=== PATIENT | male | born 1955 | race Caucasian/White ===

== ENCOUNTER 2022-11-16 10:50 | Emergency (ER) | payer OTHER ==
[2022-11-16 11:30] VITALS: BP 146/97; PULSE 93; RESP 18; TEMP 98.1; BMI 33.6
== END 2022-11-16 11:40 | disposition home or self-care (01) ==
LOC: FER 10:50
DX: R07.81 Pleurodynia (principal); S29.011A Strain of muscle and tendon of front wall of thorax, initial encounter; M79.602 Pain in left arm; S80.212A Abrasion, left knee, initial encounter; S40.212A Abrasion of left shoulder, initial encounter; W10.1XXA Fall (on)(from) sidewalk curb, initial encounter; Y93.01 Activity, walking, marching and hiking; Y92.480 Sidewalk as the place of occurrence of the external cause
CPT/HCPCS: 99283-25

== ENCOUNTER 2022-11-25 06:35 | Emergency (ER) | payer OTHER ==
[2022-11-25 06:52] VITALS: TEMP 97.8; BMI 32.5
[2022-11-25 09:13] LABS: HEMATOCRIT 45.3 % (35.4-49); MCH 29.6 pg (25.7-33.7); MCHC 33.2 g/dl (32.0-35.9); MEAN CELL VOLUME 89.2 fl (80-96); MEAN PLT VOLUME 8.8 fl (7.5-11.1); PLATELET COUNT 166.7 10^3/uL (134-434); RBC 5.08 10^6/uL (4.00-5.60); RDW 15.4 % (11.9-15.9); WHITE BLOOD COUNT 8.6 10^3/uL (4.0-10.8)
[2022-11-25 09:22] LABS: ALBUMIN 3.3 g/dl (3.4-5.0); BILIRUBIN,TOTAL 0.9 mg/dl (0.2-1); CALCIUM 9.6 mg/dl (8.5-10); CREATININE 1.6 mg/dl (0.55-1.3); POTASSIUM 3.8 mmol/L (3.5-5.1); TOT PROT 6.5 g/dl (6.4-8.2)
[2022-11-25 10:48] VITALS: BP 120/78; PULSE 76; RESP 18
== END 2022-11-25 11:48 | disposition home or self-care (01) ==
LOC: FER 06:35
DX: S40.912A Unspecified superficial injury of left shoulder, initial encounter (principal); M25.532 Pain in left wrist; R07.81 Pleurodynia; R10.12 Left upper quadrant pain; R10.32 Left lower quadrant pain; W19.XXXA Unspecified fall, initial encounter
CPT/HCPCS: 36415; 71101-TC-LT-FY; 71260-TC; 73030-TC-LT-FY; 73110-TC-LT-FY; 74177-TC; 80053; 85027; 99285-25; Q9967